=== PATIENT | female | born 1980 | race Caucasian/White ===

== ENCOUNTER 2025-06-13 13:13 | Outpatient (CLI) | payer BC | END 2025-06-13 13:14 | disposition home or self-care (01) | LOC: SCSMRI 13:13 | PROVIDERS: ATTEND Specialist | DX: M54.2 Cervicalgia (principal); M47.812 Spondylosis without myelopathy or radiculopathy, cervical region; M25.78 Osteophyte, vertebrae; M48.02 Spinal stenosis, cervical region | CPT/HCPCS: 72141 ==